=== PATIENT | female | born 1955 ===

== ENCOUNTER 2018-05-31 10:43 | Outpatient (CLI) | payer OTHER | END 2018-05-31 10:51 | disposition home or self-care (01) | LOC: RAD 10:43 | DX: M65.321 Trigger finger, right index finger (principal); M19.041 Primary osteoarthritis, right hand ==

== ENCOUNTER 2023-08-24 10:28 | Outpatient (CLI) | payer OTHER | END 2023-08-24 10:32 | disposition home or self-care (01) | LOC: RAD 10:28 | PROVIDERS: ATTEND Internal Medicine Rheumatology | DX: M16.0 Bilateral primary osteoarthritis of hip (principal); Z91.041 Radiographic dye allergy status ==